=== PATIENT | female | born 1980 | race Caucasian/White ===

== ENCOUNTER 2020-09-22 19:23 | Emergency (ER) | payer MEDICARE, MEDICAID ==
[~2020-09-22] VITALS: Ht 165.1 cm; Wt 102.5 kg
[2020-09-22 19:39] VITALS: BP 104/68
[2020-09-22] MEDS ORDERED: CYCLOBENZAPRINE 10 MG TABLET. PO ONE (20:00)
[2020-09-22] MEDS ORDERED: NAPROXEN 500 MG TABLET PO ONE (20:00)
[2020-09-22] MEDS ORDERED: CYCL-331 PO (20:04)
[2020-09-22] MEDS ORDERED: NAPR-514 PO (20:04)
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
== END 2020-09-22 20:14 | disposition home or self-care (01) ==
LOC: ER 19:23
DX: S29.012A Strain of muscle and tendon of back wall of thorax, initial encounter (principal); M62.838 Other muscle spasm; F41.9 Anxiety disorder, unspecified; F32.9 Major depressive disorder, single episode, unspecified; E03.9 Hypothyroidism, unspecified; Z98.890 Other specified postprocedural states; Z88.0 Allergy status to penicillin; X58.XXXA Exposure to other specified factors, initial encounter; Y93.89 Activity, other specified; Y92.89 Other specified places as the place of occurrence of the external cause; Y99.0 Civilian activity done for income or pay
CPT/HCPCS: 99283

== ENCOUNTER 2020-12-10 16:19 | Emergency (ER) | payer MEDICARE, MEDICAID ==
[~2020-12-10 16:19] MED LIST: CYCL-331 PO; NAPR-514 PO
== END 2020-12-10 16:32 | disposition left against medical advice (07) ==
LOC: ER 16:19
DX: Z53.21 Procedure and treatment not carried out due to patient leaving prior to being seen by health care provider (principal); Z76.0 Encounter for issue of repeat prescription